=== PATIENT | male | born 1990 | race Caucasian/White ===

== ENCOUNTER 2017-01-05 22:07 | Emergency (ER) | payer OTHER ==
[~2017-01-05] VITALS: Ht 180.3 cm; Wt 75.0 kg
[2017-01-05 22:42] VITALS: BP 130/72; PULSE 74; RESP 18; O2SAT 99
--- NOTE | 2017-01-05 22:53 | ED.REPORT ---
HPI-Trauma Multiple Date of Service Jan 05, 2017 ED Provider: Maurice Conn MD Patient is a 26 year old male who presents to the ED complaining of constant, severe low back pain s/p a snowboarding accident. While he was snowboarding he was thrown and fell 5 feet landing on snow. He is unable to stand upright upon arrival and is leaning to the left. He has no other complaints. He denies hitting his head, incontinence, leg pain, numbness, tingling, weakness, neck pain, or any other symptoms. He has had his severe pain since the injury. Nursing Notes Stated Complaint: BACK PAIN/INJURY Chief Complaint: Multiple Trauma/Fall Nursing Notes Reviewed: Yes Allergies: Coded Allergies: No Known Allergies (Unverified Allergy, Unknown, 01/05/17) Scheduled Ondansetron (Ondansetron) 8 Mg Tablet 8 MG PO QID Scheduled PRN Methocarbamol (Robaxin-750) 750 Mg Tablet 1-2 TAB PO QID PRN PRN For Spasm Naproxen (Naprosyn) 500 Mg Tablet 500 MG PO BID PRN PRN For Pain oxyCODONE-Acetaminophen 5-325 mg (oxyCODONE-Acetaminophen 5-325 mg) 1 Each Tablet 1-2 TAB PO Q4H PRN PRN For Pain General Time Seen by Provider: 22:52 Chief Complaint Other (Back pain) Hx Obtained From: Patient Arrived By: Walk-in Location: : Back Quality: Painful Severity: Current: Severe Severity: Maximum: Severe Past Medical History Past Medical History Seizure last year Past Surgical History No previous abdominal surgeries Smoking History Unknown if Ever Smoker Social History Alcohol Use: Denies alcohol use Drug Use: THC Ambulatory Status Independent Review of Systems Male: Denies Incontinence Musculoskeletal: Reports: Back pain, Denies: Extremity pain, Neck pain Neurologic: Denies: Headache, Numbness, Weakness Complete sys rev & neg: except as marked. Physical Exam Initial Vital Signs Vital Signs (First) Date Time Temp Pulse Resp B/P Pulse Ox O2 Delivery O2 Flow Rate FiO2 01/05/17 22:42 36.8 74 18 130/72 99 Room Air Initial VS: Reviewed Skin: Warm, Dry Psychiatric: Mood/affect normal, Behavior normal, Normal thought content General/Constitutional: Awake, Alert, Well developed Distress / Hydration: Positive: Distress moderate Head / Eyes: Atraumatic, Normocephalic Neck: Atraumatic Respiratory / Chest: Breath sounds NL, Breath sounds = bilat, No respiratory distress Cardiovascular: Heart rate NL, Regular rhythm, Heart sounds NL Abdomen: Soft, Non-tender Flank / Spine / Paraspinal: Positive: Lumbar paraspinal tend... Tender paraspinal muscles bilat. scoliosis of lumbar spine Appeared with L hip elevated Neurologic: Oriented X3, Speech NL, No motor deficits, No sensory deficits Interpretation & Diagnostics CT C-Spine Interpretation CT LUMBAR SPINE IMPRESSION: l5-S1 disc herniation, with milder bulges/protrusions at L3-4 and L4-5. No fracture or listhesis. Interpretation / Wet Read by: Interpret - Radiologist Re-Eval/Medical Decision Med Decision/Clinical Course Med Decision/Clinical Course: 26-year-old presents 4-5 hours after snowboarding accident resulting in low back pain. He has no neurological symptoms other than pain. CT of his lumbar spine shows significant disc protrusion at the L5-6 region with some impingement of the thecal sac, and also some lateral bulging at the L4-L5 and L3-4 regions. He is advised to begin strict bed rest, follow-up with neuro spine. Vicodin for pain relief, Naprosyn, Robaxin,. Prompt return if any neuro symptoms develop and these were discussed explicitly. Re-Evaluation/Progress : Time of Eval: 01:35 Patient Status: Condition improved Re-Evaluation/Progress Note: Rechecked patient. Discussed imaging results and plan for discharge. Patient understands and agrees with plan. All questions addressed at this time. Counseled Regarding: Diagnosis, Lab results, Need for follow-up, When/why to return to ED Discharge & Departure Shift Change Sign-Out Response to Therapy: Improved Impression: Primary Impression: Lumbar disc herniation Additional Impression: Fall from snowboard, initial encounter Disposition: Home Discharge Condition All VS Reviewed: Yes Condition: Improved Additional Instructions: You have disc herniation at L5-S1 and lesser bulging at L4-5 and L3-4. Bed rest for the next 4-5 days. Naprosyn twice daily. Percocet every four hours if needed additionally for pain. Zofran if needed for nausea. Robaxin four times daily if needed for spasm. Follow-up with Dr. Thrasher in the office. Call tomorrow for follow-up appointment. Return promptly for any numbness, weakness, tingling, bowel or bladder incontinence. Referrals: [facility]CP (PCP) Scribe Attestation Portions of this note were transcribed by Nolvia Duran. I, Dr. Conn personally performed the history, physical exam and medical decision-making; I reviewed and confirmed the accuracy of the information in the transcribed note. Signed by: Nolvia Duran 01/06/17, 0156 Maurice Conn MD Jan 05, 2017 22:53 NOLVIA DURAN Jan 05, 2017 23:02
[2017-01-05] MEDS ORDERED: HYDROmorphone 1 mg/mL Inj IM ONE (23:00)
[2017-01-05 23:23] VITALS: BP 126/73; PULSE 73; RESP 16; O2SAT 100
[2017-01-05] MEDS ORDERED: Ondansetron 8 mg ODT Tablet ONE (23:27)
[2017-01-05] MEDS ORDERED: Ondansetron 8 mg ODT Tablet PO ONE (23:30)
[2017-01-06 00:07] VITALS: BP 123/64; PULSE 64; RESP 14; O2SAT 97
[2017-01-06 01:21] VITALS: BP 108/56; PULSE 69; RESP 16; O2SAT 100
[2017-01-06] MEDS ORDERED: _oxyCODONE/APAP 5-325 mg Tablet PO PRN (01:40)
[2017-01-06] MEDS ORDERED: OXYC1TAB24 PO (01:51)
[2017-01-06] MEDS ORDERED: NAPR500T PO (01:51)
[2017-01-06] MEDS ORDERED: METH-313 PO (01:51)
[2017-01-06] MEDS ORDERED: ONDA-54 PO (01:51)
[2017-01-06 02:09] VITALS: BP_SYST 107; BP_SYST 108; BP_DIAS 55; BP_DIAS 56; PULSE 16; PULSE 69; RESP 16; O2SAT 100
--- NOTE | 2017-01-06 12:01 | DRSVH ---
PROCEDURE: CT LUMBAR SPINE WITHOUT CONTRAST ([id number]) INDICATIONS: snowboard accident TECHNIQUE: Noncontrast 3 mm thick sections acquired from the T12 level to the sacrum. Sagittal and coronal refo rmats were constructed. For radiation dose reduction, the following was used: automated exposure co ntrol. COMPARISON: None. FINDINGS: Image quality: Excellent. Bones: There is normal bony alignment. No acute vertebral body compression fractures. No suspiciou s lytic or blastic bony lesions. Central spinal caliber is of normal overall caliber. No pars defec ts. Mild disc bulges are present at L3-4, L4-5 and L5-S1 with minimal spinal stenosis at L5 S1. Soft tissues: No retroperitoneal masses or hematomas. Visualized aorta is normal in caliber. IMPRESSION: 1. Mild disc bulges from L3-4 through L5-S1 with minimal stenosis at L5-S1. 2. No visualized fracture. Dictated by: Latrice Harper M.D. on 01/06/2017 at 11:54 Approved by: Latrice Harper M.D. on 01/06/2017 at 11:59
== END 2017-01-06 02:11 | disposition home or self-care (01) ==
LOC: SED 22:07
DX: M51.26 Other intervertebral disc displacement, lumbar region (principal); V00.311A Fall from snowboard, initial encounter; Y93.23 Activity, snow (alpine) (downhill) skiing, snowboarding, sledding, tobogganing and snow tubing; Y92.89 Other specified places as the place of occurrence of the external cause; Y99.8 Other external cause status
CPT/HCPCS: 72131; 96372; 99284; J1170